=== PATIENT | female | born 1960 | race Caucasian/White ===

== ENCOUNTER → 2018-02-16 | Outpatient (CLI) | payer OTHER ==
[~2018-02-16] MED LIST: ANTI ANXIETY MED PO; MIRA50TA PO
== END | disposition home or self-care (01) ==
LOC: CFH 08:38 → MERGE 08:38
PROVIDERS: ATTEND Internal Medicine
DX: Z12.31 Encounter for screening mammogram for malignant neoplasm of breast (principal)
CPT/HCPCS: 77063; 77067